=== PATIENT | female | born 1965 | race Hispanic/Latino ===

== ENCOUNTER 2021-08-14 05:29 | Day surgery (SDC) | payer MEDICARE ==
[2021-08-13 12:37] LABS: BASOPHILS % (AUTO) 0.5 % (0.0-5.0); EOSINOPHILS % (AUTO) 1.4 % (0.0-8.0); HEMATOCRIT 40.2 % (36-48); LYMPHOCYTES % (AUTO) 28.6 % (21.0-51.0); MEAN CORPUSCULAR HEMOGLOBIN 29.5 pg (27.0-33.0); MEAN CORPUSCULAR HGB CONC 32.6 g/dL (32.0-36.0); MEAN CORPUSCULAR VOLUME 90.5 fL (79-99); MONOCYTES % (AUTO) 5.2 % (3.0-13.0); NEUTROPHILS % (AUTO) 63.7 % (40.0-77.0); PLATELET COUNT (AUTO) 265 K/uL (130-400); RED BLOOD CELL COUNT(AUTO) 4.44 MIL/uL (4.00-5.50); WHITE BLOOD COUNT (AUTO) 7.8 K/uL (4.8-10.8)
[2021-08-13 14:09] VITALS: BP 146/86
[2021-08-14] VITALS (16 sets, daily range): BP systolic 137–157; BP diastolic 72–91
[~2021-08-14] VITALS: Ht 157.5 cm; Wt 76.9 kg
[~2021-08-14 05:29] MED LIST: BENZ1TAB10 PO; BISA5TAB12 PO; CARB-38 PO; CARI3CAP PO; CLON0.5T4 PO; CLON1TAB12 PO; LACT10SO9 PO; LINA145C PO; LISI20TA24 PO; TRAZ300T2 PO; [UNRECOGNIZED DRUG - CODE] PO
[2021-08-14] MEDS ORDERED: LACTATED RINGERS 1000ML 1,000 ML IV SCH (06:00)
[2021-08-14] MEDS ORDERED: PROPOFOL 10 MG/ML 20ML VIAL IV ONE ×2 (08:39→08:46)
== END 2021-08-14 10:20 | disposition home or self-care (01) ==
LOC: DAH 05:29
PROVIDERS: ATTEND Obstetrics & Gynecology
DX: N39.0 Urinary tract infection, site not specified (principal); N81.10 Cystocele, unspecified; F31.9 Bipolar disorder, unspecified; F20.0 Paranoid schizophrenia; Z90.710 Acquired absence of both cervix and uterus; Z79.01 Long term (current) use of anticoagulants; Z82.49 Family history of ischemic heart disease and other diseases of the circulatory system; Z83.3 Family history of diabetes mellitus; Z83.438 Family history of other disorder of lipoprotein metabolism and other lipidemia; Z82.0 Family history of epilepsy and other diseases of the nervous system
CPT/HCPCS: 36415 ×2; 57410; 85025; 86850 ×2; 86900 ×2; 86901 ×2; 87077; 87088; 87186; 87635; A4215; A4221; A4222; A4223; A4606; A4663; A6260; C9803; J2704 ×2; J7120

== ENCOUNTER → 2021-09-20 | Outpatient (CLI) | payer MEDICARE | END | disposition home or self-care (01) | LOC: RAH 11:49 | PROVIDERS: ATTEND Physician Assistant Medical | DX: M47.815 Spondylosis without myelopathy or radiculopathy, thoracolumbar region (principal); K59.04 Chronic idiopathic constipation; K59.09 Other constipation | CPT/HCPCS: 74018 ==

== ENCOUNTER 2022-11-26 11:23 | Emergency (ER) | payer MEDICARE ==
[~2022-11-26] VITALS: Ht 172.7 cm; Wt 104.3 kg
[~2022-11-26 11:23] MED LIST changes: -BENZ1TAB10 PO; +BENZ1TAB83 PO; +BISA-151 PO; -BISA5TAB12 PO; +CHLO100T36 PO; -[UNRECOGNIZED DRUG - CODE] PO
[2022-11-26 12:12] LABS: BASOPHILS # (AUTO) 0.03 K/uL (0.00-0.20); BASOPHILS % (AUTO) 0.4 % (0.0-5.0); EOSINOPHILS # (AUTO) 0.15 K/uL (0.00-0.70); EOSINOPHILS % (AUTO) 1.9 % (0.0-8.0); HEMATOCRIT 38.6 % (36-48); IMMATURE GRANULOCYTE ABSOLUTE 0.04 K/uL (0-1); LYMPHOCYTES # (AUTO) 1.6 K/uL (1.0-4.8); LYMPHOCYTES % (AUTO) 19.8 % (21.0-51.0); MEAN CORPUSCULAR HGB CONC 33.2 g/dL (32.0-36.0); MEAN CORPUSCULAR VOLUME 87.3 fL (79-99); MONOCYTES # (AUTO) 0.5 K/uL (0.1-1.0); MONOCYTES % (AUTO) 6.5 % (3.0-13.0); NEUTROPHILS # (AUTO) 5.7 K/uL (1.8-7.7); NEUTROPHILS % (AUTO) 70.9 % (40.0-77.0); PLATELET COUNT (AUTO) 285 K/uL (130-400); RED BLOOD CELL COUNT(AUTO) 4.42 MIL/uL (4.00-5.50)
[2022-11-26 12:21] LABS: CARBON DIOXIDE 29 mmol/L (21-32); CHLORIDE 104 mmol/L (101-111); GLOMERULAR FILTR. RATE CALC 67 mL/min (>90); GLUCOSE,RANDOM 103 mg/dL (70-105); POTASSIUM 4.2 mmol/L (3.5-5.1); SODIUM SERUM 142 mmol/L (136-145); UREA NITROGEN, BLOOD 15 mg/dL (7-18)
[2022-11-26 12:25] LABS: ALANINE AMINOTRANSFERASE 26 U/L (12-78); ALBUMIN 3.7 g/dL (3.5-5.0); ASPARTATE AMINOTRANSFERASE 13 U/L (10-37); BILIRUBIN,TOTAL 0.2 mg/dL (0.2-1.0); TOTAL PROTEIN, SERUM 7.2 g/dL (6.0-8.3)
[2022-11-26] MEDS ORDERED: HYDROXYZINE 50MG VIAL 50 MG/ML VIAL IM SCH (12:30)
[2022-11-26 12:58] LABS: LIPASE < 50 U/L (114-286)
[2022-11-26 13:24] LABS: ADD UA MICROSCOPIC YES; APPEARANCE,URINE CLOUDY (CLEAR); BILIRUBIN,URINE NEGATIVE (NEGATIVE); COLOR,URINE LIGHT-YELLOW (YELLOW); GLUCOSE, URINE (UA) 150 mg/dL (NEGATIVE); KETONES,URINE NEGATIVE (NEGATIVE); LEUKOCYTE ESTERASE ,URINE 250 Leu/uL (NEGATIVE); NITRATE,URINE 2+ (NEGATIVE); OCCULT BLOOD,URINE NEGATIVE (NEGATIVE); PH,URINE 6.5 (5.0-8.0); PROTEIN,URINE NEGATIVE (NEGATIVE); UROBILINOGEN,URINE 0.2 mg/dL (0.2-1.0)
[2022-11-26 13:34] LABS: BACTERIA,URINE FEW /HPF (None Seen); SQUAMOUS EPITHELIAL CELL,UR MOD /HPF (0-2)
[2022-11-26] MEDS ORDERED: CEPH500B PO (13:36)
[2022-11-26 14:00] VITALS: BP 129/80; PULSE 78; RESP 16; O2SAT 97
[2022-11-26] MEDS ORDERED: CEFTRIAXONE 1G VIAL IM ONE (14:00)
== END 2022-11-26 14:27 | disposition home or self-care (01) ==
LOC: EDH 11:23
DX: N39.0 Urinary tract infection, site not specified (principal); F91.9 Conduct disorder, unspecified; K21.9 Gastro-esophageal reflux disease without esophagitis; Z79.899 Other long term (current) drug therapy
CPT/HCPCS: 99284; 80053; 83690; 85025; 87077; 87088; 87186; 81001; 36415; 96372 ×2; J3410 ×2; J0696